=== PATIENT | male | born 1985 | race Caucasian/White ===

== ENCOUNTER 2017-09-01 20:24 | Emergency (ER) | payer SELFPAY | END 2017-09-01 21:30 | disposition home or self-care (01) | LOC: D.ER 20:24 | DX: L02.01 Cutaneous abscess of face (principal); F17.200 Nicotine dependence, unspecified, uncomplicated ==

== ENCOUNTER 2017-09-03 12:49 | Emergency (ER) | payer SELFPAY | END 2017-09-03 17:39 | disposition home or self-care (01) | LOC: D.ER 12:49 | DX: L03.211 Cellulitis of face (principal); F17.200 Nicotine dependence, unspecified, uncomplicated ==

== ENCOUNTER 2018-04-13 05:48 | Emergency (ER) | payer MEDICAID ==
[~2018-04-13] VITALS: Ht 167.6 cm; Wt 68.2 kg
[2018-04-13 05:58] VITALS: Ht 167.6 cm; Wt 68.2 kg
[2018-04-13] MEDS ORDERED: HYDROCODON-ACE1 EAC7 PO (06:13)
[2018-04-13] MEDS ORDERED: AMOXICILLIN500 M1 PO (06:13)
[2018-04-13 06:29] VITALS: BP 129/83
== END 2018-04-13 06:30 | disposition home or self-care (01) ==
LOC: D.ER 05:48
DX: K60.2 Anal fissure, unspecified (principal); K02.9 Dental caries, unspecified; K92.1 Melena; R10.9 Unspecified abdominal pain; I10 Essential (primary) hypertension

== ENCOUNTER 2018-04-23 13:05 | Emergency (ER) | payer MEDICAID ==
[2018-04-13 05:58] VITALS: BMI 24.2
[~2018-04-23 13:05] MED LIST: AMOXICILLIN500 M1 PO; HYDROCODON-ACE1 EAC7 PO
== END 2018-04-23 13:12 | disposition left against medical advice (07) ==
LOC: D.ER 13:05
DX: K60.2 Anal fissure, unspecified (principal); K02.9 Dental caries, unspecified; I10 Essential (primary) hypertension; F17.200 Nicotine dependence, unspecified, uncomplicated

== ENCOUNTER 2018-04-28 11:20 | Emergency (ER) | payer MEDICAID ==
[~2018-04-28] VITALS: Ht 167.6 cm; Wt 70.5 kg
[2018-04-28 11:28] VITALS: Ht 167.6 cm; Wt 70.5 kg
[2018-04-28] MEDS ORDERED: ACETAMINOPHEN325 MG PO (11:33)
[2018-04-28] MEDS ORDERED: CLEOCIN HCL300 MG PO (12:12)
[2018-04-28] MEDS ORDERED: TORADOL10 MG PO (12:12)
[2018-04-28 13:19] VITALS: BP 120/71
== END 2018-04-28 13:19 | disposition home or self-care (01) ==
LOC: D.ER 11:20
DX: K02.9 Dental caries, unspecified (principal); L27.1 Localized skin eruption due to drugs and medicaments taken internally; T36.95XA Adverse effect of unspecified systemic antibiotic, initial encounter; Y92.019 Unspecified place in single-family (private) house as the place of occurrence of the external cause; K05.30 Chronic periodontitis, unspecified; I10 Essential (primary) hypertension; F17.200 Nicotine dependence, unspecified, uncomplicated

== ENCOUNTER 2019-01-05 18:24 | Emergency (ER) | payer MEDICAID ==
[~2019-01-05] VITALS: Ht 167.6 cm; Wt 70.5 kg
[~2019-01-05 18:24] MED LIST changes: +ACETAMINOPHEN325 MG PO; +CLEOCIN HCL300 MG PO; +TORADOL10 MG PO
[2019-01-05 18:39] VITALS: Ht 167.6 cm; Wt 70.5 kg
[2019-01-05] MEDS ORDERED: TORADOL10 MG PO (20:14)
[2019-01-05 20:33] VITALS: BP 131/70
== END 2019-01-05 20:33 | disposition home or self-care (01) ==
LOC: D.ER 18:24
DX: S93.401A Sprain of unspecified ligament of right ankle, initial encounter (principal); X50.1XXA Overexertion from prolonged static or awkward postures, initial encounter; Y93.89 Activity, other specified; Y92.89 Other specified places as the place of occurrence of the external cause; S31.159A Open bite of abdominal wall, unspecified quadrant without penetration into peritoneal cavity, initial encounter; W54.0XXA Bitten by dog, initial encounter

== ENCOUNTER 2019-03-15 17:03 | Day surgery (SDC) | payer OTHER ==
[~2019-03-15] VITALS: Ht 167.6 cm; Wt 65.9 kg
[2019-03-15 19:00] LABS: BASOPHILS 0.4 % (0-2); EOSINOPHILS 2.1 % (0-7); HEMATOCRIT 44.4 % (42.0-54.0); HEMOGLOBIN 15.1 g/dL (13.5-17.5); IMMATURE GRANULOCYTES 0.1 % (0-5); LYMPHOCYTES 24.6 % (15-50); MCH 30.4 pg (26.0-34.0); MCV 89.5 fL (80.0-100.0); MEAN PLATELET VOLUME 11.4 fL (7.4-10.4); MONOCYTES 10.5 % (2-11); NEUTROPHILS 62.3 % (40-80); PLATELET COUNT 246 10x3/uL (130-400); RBC 4.96 10x6/uL (4.20-6.10); RDW 13.3 % (11.5-14.5); WBC 7.5 10x3/uL (4.8-10.8)
[2019-03-15 19:17] LABS: ALBUMIN 3.5 g/dL (3.4-5.0); ALKALINE PHOSPHATASE 80 U/L (46-116); ALT (SGPT) 23 U/L (10-68); BILIRUBIN - TOTAL 0.24 mg/dL (0.2-1.3); CALC OSMOLALITY 277 mosm/kg (275-300); CALCIUM 9.4 mg/dL (8.5-10.1); CARBON DIOXIDE 32.2 mmol/L (21.0-32.0); CHLORIDE - SERUM 104 mmol/L (98-107); CREATININE - SERUM 0.8 mg/dL (0.6-1.3); GLUCOSE 84 mg/dL (74-106); POTASSIUM - SERUM 4.5 mmol/L (3.5-5.1); PROTEIN - SERUM 7.2 g/dL (6.4-8.2); SODIUM 141 mmol/L (136-145); UREA NITROGEN 8 mg/dL (7-18); eGFR NON AFRICAN AMERICAN > 90 mL/min (90-120)
--- NOTE | 2019-03-15 19:35 | NUR ---
RECEIVED PT FROM ER VIA W/C. ALERT AND ORIENTED X4. RESP EVEN AND NONLABORED. ACCOMPANIED BY S.O. REPORTS PAIN IN ARM 10. JUST RECEIVED PAIN MED IN ER. SOFT CAST NOTED TO JODEE. SALINE LOCK NOTED TO LT AC. AMBULATORY. DENIES ANY HOME MEDS. PT IS A SMOKER AND ALSO ADMITS TO DRINKING ALCOHOL. AT FIRST DENIED ANY DRUG USE BUT THEN ADMITTED TO SMOKING MARIJUANA AND METH. REPORTS LAST METH USE ON SATURDAY. STATES HE IS TRYING TO "GET OFF OF IT". ADMITS TO TAKING "PILLS" ALSO BUT DID NOT ELABORATE. INFORMED PT THAT HE IS NPO AFTER MIDNIGHT AND HE VERBALIZED UNDERSTANDING. INFORMED PT THAT URINE SPECIMEN IS NEEDED. SR ELEVATED X2. CL IN REACH.
[2019-03-15 20:00] VITALS: BP 148/97
--- NOTE | 2019-03-15 22:16 | NUR ---
MEDICATED WITH MORPHINE AND ZOFRAN FOR C/O PAIN IN RUE 10. CL IN REACH. NS @ 50 MLHR INFUSING IN LT AC WITHOUT DIFF.
--- NOTE | 2019-03-15 23:30 | NUR ---
CALLED STAFF TO ROOM ASKING IF HE COULD GO OUTSIDE AND GET SOME "FRESH AIR." PT SLURRING WORDS AND DROWSY FROM PAIN MED. ADVISED PT THAT HE SHOULD PROBABLY WAIT UNTIL THE PAIN MED WEARS OFF IN ABOUT AN HOUR OR SO BEFORE HE GOES OUTSIDE DUE TO SAFETY ISSUES AND RISK FOR FALL OR INJURY. PT UPSET AT STAFF. SIG OTHER AT BEDSIDE.
[2019-03-15 23:35] VITALS: BP 148/97; Ht 167.6 cm; Wt 65.9 kg
[2019-03-16] VITALS (9 sets, daily range): BP systolic 144–164; BP diastolic 80–96
--- NOTE | 2019-03-16 00:30 | NUR ---
ASKED STAFF IF HE COULD GO OUTSIDE. ADVISED HIM AGAINST GOING OUTSIDE WHILE UNDER THE INFLUENCE OF PAIN MED BUT THAT WE COULDNT KEEP HIM FROM GOING. PT AND S.O. AGITATED WITH THIS FARM OPERATIONS TECHNICAL DIRECTOR. MANAGER FINE DINING ENTERED ROOM AND S.O. STATES THAT THEY WANT ANOTHER NURSE. NOTIFIED CHARGE NURSE OF THIS. THEY STATED THAT THIS FARM OPERATIONS TECHNICAL DIRECTOR THREW HER HANDS OF IN THE AIR AND "HUFFED AND PUFFED" ABOUT HIM GOING OUTSIDE WHICH NEVER HAPPENED. REPORT GIVEN TO Mary ISRAEL LPN TO CARE FOR THIS PT FOR THE REMAINDER OF THE SHIFT. PT DISCONNECTED FROM IV FLUIDS AND WENT OUTSIDE IN W/C TO SMOKE WITH S.O.
--- NOTE | 2019-03-16 01:17 | NUR ---
ASSUMED CARE OF PATIENT. PT STATED HE HAD URINE SAMPLE READY. WENT INTO ROOM TO COLLECT URINE AND PATIENT STATED "I'VE GOT TO GO BACK OUT SIDE I LOST MY PHONE." PATIENT AND SIGNIFICANT OTHER WERE WALKING OUT AND INSTRUCTED PATIENT THAT HE NEEDED TO BE IN THE WHEELCHAIR WHENEVER HE IS OUT OF HIS ROOM FOR SAFETY ESPECIALLY UNDER THE INFLUENCE OF PAIN MEDICINE. PATIENT STATED "OKAY" AND REMAINED WALKING DOWN [address] WHILE SIGNIFICANT OTHER PUSHED EMPTY WHEEL CHAIR DOWN [address]. PATIENT IGNORES STAFF EDUCATION AND INSTRUCTION. RETURNED BACK TO ROOM WITH SIGNIFICANT OTHER AT SIDE. URINE SPECIMEN COLLECTED AND DELIVERED TO LAB.
[2019-03-16 01:23] LABS: APPEARANCE CLEAR (CLEAR); BILIRUBIN NEGATIVE (NEGATIVE); COLOR YELLOW (YELLOW); GLUCOSE NEGATIVE (NEGATIVE); KETONE NEGATIVE (NEGATIVE); NITRITE NEGATIVE (NEGATIVE); PROTEIN NEGATIVE (NEGATIVE); SPECIFIC GRAVITY 1.015 (1.005-1.020); UROBILINOGEN NORMAL (NORMAL)
[2019-03-16 01:36] LABS: UDS - AMPHET POSITIVE QUAL (NEGATIVE); UDS - BARB NEGATIVE QUAL (NEGATIVE); UDS - BENZO NEGATIVE QUAL (NEGATIVE); UDS - COCAINE NEGATIVE QUAL (NEGATIVE); UDS - OPIATE POSITIVE QUAL (NEGATIVE); UDS - PCP NEGATIVE QUAL (NEGATIVE); UDS - THC NEGATIVE QUAL (NEGATIVE)
--- NOTE | 2019-03-16 02:00 | NUR ---
ANSWERED PT CALL LIGHT. ASKED PATIENT PAIN RATING AND PT REPLIED "NO PAIN RIGHT NOW." DISCUSSED WITH PATIENT ABOUT POLICY OF GOING IN AND OUT AND THAT NO ONE IS TRYING TO HOLD HIM IN AGAINST HIS WILL THAT LEAVING THE FLOOR IS A SAFETY ISSUE ESPECIALLY WHEN IV PAIN MEDICINE IS INVOLVED. PATIENT CALM AND UNDERSTANDING. PT MORE COMPLIANT NOW THAN BEFORE.
--- NOTE | 2019-03-16 05:56 | NUR ---
PT STATES NAUSEA. ADMINISTERED ZOFRAN PER ORDER. STATES HE IS "NERVOUS ABOUT SURGERY. I'VE NEVER HAD SURGERY BEFORE." ENCOURAGED PATIENT TO SPEAK WITH SURGEON OR ANESTHESIOLOGIST ABOUT ANY ISSUES OR CONCERNS. PATIENT VERBALIZES UNDERSTANDING.
--- NOTE | 2019-03-16 10:45 | NUR ---
PATIENT GOT UPSET WITH FAMILY. REFUSED TO HAVE THE SURGERY. FAMILY LEAVES. I GO INTO THE ROOM TO SEE WHAT THE PROBLEM WAS. HIS MOM AND GIRLFRIEND DO NOT GET ALONG. HIS MOM WOULD NOT CALL HIS GIRLFRIEND FOR HIM. HE WANTS HIS GIRLFRIEND UP HERE WHILE HE HAS SURGERY. I CALLED JIMBO SAID THE PATIENT DID NOT WANT THE SURGERY ANY MORE AND THAT HE WANTED TO LEAVE AMA. WHICH HE HAD STATED. JIMBO TOLD ME TO INFORM HIM THAT IF HE DOES NOT GET THIS SURGERY HIS ARM WILL NOT HEAL PROPERLY AND HE WILL NOT BE ABLE TO USE THAT ARM. ALSO THAT IF HE LEFT IT WOULD BE AGAINST MEDICAL ADVICE AND THAT INSURANCE WOULD NOT COVER IT. WE GOT DEE AND PATIENT DECIDED HE WOULD GO AHEAD AND GO TO SURGERY. INFORMED SURGERY
[2019-03-16] MEDS ORDERED: PERCOCET 10-321 EAC1 PO (12:11)
--- NOTE | 2019-03-16 14:54 | OP ---
PATIENT NAME: JESUS ROGER MEDICAL RECORD: [id number] :87 LOCATION:[id number] ADMISSION DATE:03/15/19 SURGEON: DUSTIN ZAMORA MD DATE OF OPERATION: 03/16/2019 PREOPERATIVE DIAGNOSIS: Displaced right radius fracture, midshaft. POSTOPERATIVE DIAGNOSIS: Displaced right radius fracture, midshaft. PROCEDURE: Open reduction and internal fixation of displaced midshaft radius fracture. SURGEON: Dustin Zamora MD CASHIER MANAGER: NAT Arambula INTRAOPERATIVE COMPLICATIONS: None. SUMMARY OF PATHOLOGIC FINDINGS: Essentially none. The patient had a small amount of comminution; however, the fracture keyed in nicely and was very amenable to internal fixation via a dorsal approach. All was done under fluoroscopic guidance. OPERATIVE SUMMARY IN DETAIL: After obtaining the appropriate preoperative orthopedic surgery consent as well as anesthetic consultation, evaluation, and clearance, the patient was brought to the operating room and placed on the operating table in supine position. After adequate general laryngeal mask was administered, tourniquet was placed about the proximal aspect of the right upper extremity. The right upper extremity was then prepped and draped in routine sterile fashion. Preoperative time-out was taken including patient identifiers and appropriate operative site as well as medications and allergies. At this point, the arm was elevated and exsanguinated. Tourniquet was inflated to 250 mmHg. An incision was made on the dorsal aspect and taken down gently through the forearm flexors. The terminal branch of the posterior interosseous nerve was identified and protected. The fracture was identified. The fracture hematoma was removed along with interposed soft tissue. It was then reduced and then held in reduction. A 6-hole fracture plate was then placed in combination of both compression and locking screws, again done under fluoroscopic guidance, resulted in anatomic restorationism of the fracture. Final fluoroscopy was taken and submitted for radiologist review. Wound was irrigated and closed in usual fashion by Too Villaseñor using #2 Vicryl and skin luke. Sterile dressings were applied. The tourniquet was deflated. The patient was awakened and taken to recovery room in stable condition. All final needle and sponge counts were correct. TRANSINT:[id number] Voice Confirmation ID: [id number] DOCUMENT ID: [id number] OPERATIVE REPORT [id number] LOTTIE ROGERY Mari DUSTIN ZAMORA MD at 1454 CC: [id number] DICTATION DATE: 03/16/19 1254 RN ACLS: 03/16/19 1408 ADM IN [place] [id number] [place] [id number]
== END 2019-03-16 14:58 | disposition home or self-care (01) ==
LOC: OBSVTIME → D.OPS 17:03 → D.ER 17:03 → D.MS 19:08 → D.ER 19:08 → OBSVTIME 19:08 → D.MS 19:08 → D.ER 19:26 → D.MS 03-16 14:58 → D.OPS 03-16 14:58 → EDSTATUS 03-16 15:00
PROVIDERS: Emergency Medicine; ATTEND Orthopaedic Surgery
DX: S52.91XA Unspecified fracture of right forearm, initial encounter for closed fracture (principal); W20.8XXA Other cause of strike by thrown, projected or falling object, initial encounter

== ENCOUNTER 2019-05-01 23:03 | Inpatient (IN) | payer OTHER ==
[~2019-05-01] VITALS: Ht 167.6 cm; Wt 65.9 kg
[~2019-05-01 23:03] MED LIST changes: +PERCOCET 10-321 EAC1 PO
[2019-05-01 23:55] LABS: BASOPHILS 0.2 % (0-2); EOSINOPHILS 0.3 % (0-7); HEMATOCRIT 38.5 % (42.0-54.0); HEMOGLOBIN 12.7 g/dL (13.5-17.5); IMMATURE GRANULOCYTES 0.2 % (0-5); LYMPHOCYTES 16.7 % (15-50); MCH 29.7 pg (26.0-34.0); MEAN PLATELET VOLUME 10.8 fL (7.4-10.4); MONOCYTES 12.7 % (2-11); NEUTROPHILS 69.9 % (40-80); PLATELET COUNT 279 10x3/uL (130-400); RBC 4.28 10x6/uL (4.20-6.10); RDW 13.3 % (11.5-14.5); WBC 12.2 10x3/uL (4.8-10.8)
[2019-05-02 00:01] LABS: APPEARANCE CLEAR (CLEAR); BILIRUBIN NEGATIVE (NEGATIVE); COLOR YELLOW (YELLOW); GLUCOSE NEGATIVE (NEGATIVE); KETONE NEGATIVE (NEGATIVE); NITRITE NEGATIVE (NEGATIVE); PROTEIN NEGATIVE (NEGATIVE)
[2019-05-02 00:15] LABS: ALBUMIN 3.1 g/dL (3.4-5.0); ALKALINE PHOSPHATASE 114 U/L (46-116); ALT (SGPT) 19 U/L (10-68); CALC OSMOLALITY 271 mosm/kg (275-300); CALCIUM 8.9 mg/dL (8.5-10.1); CARBON DIOXIDE 29.7 mmol/L (21.0-32.0); CHLORIDE - SERUM 97 mmol/L (98-107); CREATININE - SERUM 0.7 mg/dL (0.6-1.3); GLUCOSE 110 mg/dL (74-106); POTASSIUM - SERUM 3.9 mmol/L (3.5-5.1); PROTEIN - SERUM 7.3 g/dL (6.4-8.2); SODIUM 136 mmol/L (136-145); UREA NITROGEN 10 mg/dL (7-18); eGFR NON AFRICAN AMERICAN > 90 mL/min (90-120)
--- NOTE | 2019-05-02 02:43 | NUR ---
ARRIVED ON FLOOR VIA WC WITH SPOUSE AT SIDE. ORIENTED TO ROOM AND CALL LIGHT. ASSESSMENT AND HISTORY PER FLOWSHEET. SANDWICH AND DRINK PROVIDED.
--- NOTE | 2019-05-02 03:00 | NUR ---
IV IN LEFT AC ALARMING AND UNCOMFORTABLE. DC'D WITH TIP INTACT. RESITED TO LEFT FA. 20 GAUGE X1 STICK WITH GOOD BLOOD RETURN NOTED.
[2019-05-02 03:09] VITALS: BP 131/75; Ht 167.6 cm; Wt 65.9 kg
--- NOTE | 2019-05-02 07:00 | NUR ---
ALERT AND ORIENTED, RESTING IN BED. NO C/O PAIN. NO S/S OF ACUTE DISTRESS NOTED. IV TO LEFT FOREARM, NS INFUSING @ 100ML/HR. SITE PATENT WITHOUT REDNESS OR SWELLING. RIGHT FOREARM SWELLING. PT DENIES ANY NEEDS AT THIS TIME. CALL LIGHT IN REACH. WILL CONTINUE TO MONITOR.
--- NOTE | 2019-05-02 07:07 | NUR ---
SPOKE WITH MILEY ALEXANDRE APN ABOUT PT HAVING SOME CHEST DISCOMFORT AND FORD WHEN GETTING MORPHINE IV. DR BENITEZ TO ADDRESS ON [place].
[2019-05-02 09:47] VITALS: BP 102/54
[2019-05-02 10:05] LABS: BASOPHILS 0.1 % (0-2); EOSINOPHILS 0.6 % (0-7); HEMATOCRIT 38.5 % (42.0-54.0); HEMOGLOBIN 12.7 g/dL (13.5-17.5); IMMATURE GRANULOCYTES 0.2 % (0-5); LYMPHOCYTES 15.1 % (15-50); MCH 30.4 pg (26.0-34.0); MEAN PLATELET VOLUME 12.1 fL (7.4-10.4); MONOCYTES 14.7 % (2-11); NEUTROPHILS 69.3 % (40-80); PLATELET COUNT 301 10x3/uL (130-400); RBC 4.18 10x6/uL (4.20-6.10); RDW 13.8 % (11.5-14.5); WBC 12.5 10x3/uL (4.8-10.8)
--- NOTE | 2019-05-02 10:05 | NUR ---
PT LEFT TO GO OUTSIDE FOR FRESH AIR. RECEIVED A PHONE CALL FROM THE PATIENT'S SIGNIFICANT OTHER THAT THEY HAD LEFT TO GO TO [facility] AND HAD CAR TROUBLE. THIS NURSE EXPLAINED TO PT THAT PT WAS NOT ALLOWED TO LEAVE THE PROPERTY BECAUSE PT IS ADMITTED TO MED-SURG. PT APOLOGIZED AND STATED THEY WERE ON THE WAY BACK. CALLED COST CONTROLLER, TALKED TO RAVINDER. EXPLAINED TO HER WHAT HAPPENED. NOTIFIED YASMANY MORSE APN WELL. CONSIDERING PT ELLOPEMENT.
[2019-05-02 10:06] LABS: MCV 92.1 fL (80.0-100.0)
--- NOTE | 2019-05-02 12:00 | NUR ---
CALLED PT TO CHECK ON STATUS IF PT WAS RETURNING TO UNIT OR NOT. PT STATED HE WAS GOING TO BE COMING BACK TO THE UNIT SOON. THIS NURSE EXPLAINED TO THE PT THAT PT WOULD HAVE TO BE READMITTED INTO THE ER. PT STILL HAS IV ACCESS, WAITING FOR PT TO RETURN IN ORDER TO DISCONTINUE IV. EXPLAINED TO PT AND SPOUSE THAT IF PT DID NOT RETURN THIS NURSE WILL HAVE TO REPORT INCIDENT TO POLICE. NOTIFIED RAVINDER, PAYROLL SECRETARY OF SITUATION.
== END 2019-05-02 10:13 | disposition left against medical advice (07) | DRG 603 ==
LOC: D.ER 23:03 → D.MS 05-02 01:58
PROVIDERS: Family Medicine; ADMIT Internal Medicine Nephrology; ATTEND Internal Medicine Nephrology
DX: L03.114 Cellulitis of left upper limb (principal)

== ENCOUNTER 2019-06-03 18:34 | Emergency (ER) | payer OTHER ==
[~2019-06-03] VITALS: Ht 167.6 cm; Wt 65.9 kg
[2019-06-03 18:39] VITALS: Ht 167.6 cm; Wt 65.9 kg
[2019-06-03] MEDS ORDERED: [UNRECOGNIZED DRUG - REMARK] (18:41)
[2019-06-03] MEDS ORDERED: HYDROCODON-ACE1 EA10 PO (21:00)
[2019-06-03 21:15] VITALS: BP 138/88
== END 2019-06-03 21:16 | disposition home or self-care (01) ==
LOC: D.ER 18:34
DX: S52.202A Unspecified fracture of shaft of left ulna, initial encounter for closed fracture (principal); X58.XXXA Exposure to other specified factors, initial encounter

== ENCOUNTER 2019-06-08 23:41 | Emergency (ER) | payer OTHER ==
[~2019-06-08] VITALS: Ht 167.6 cm; Wt 65.9 kg
[~2019-06-08 23:41] MED LIST changes: +HYDROCODON-ACE1 EA10 PO; +[UNRECOGNIZED DRUG - REMARK]
[2019-06-09 00:09] VITALS: Ht 167.6 cm; Wt 65.9 kg
[2019-06-09] MEDS ORDERED: ZYVOX600 MG PO (00:10)
[2019-06-09 01:22] LABS: BASOPHILS 0.2 % (0-2); EOSINOPHILS 2.4 % (0-7); HEMATOCRIT 38.5 % (42.0-54.0); HEMOGLOBIN 12.6 g/dL (13.5-17.5); IMMATURE GRANULOCYTES 0.2 % (0-5); LYMPHOCYTES 28.1 % (15-50); MCH 29.4 pg (26.0-34.0); MCHC 32.7 g/dL (31.0-37.0); MCV 89.7 fL (80.0-100.0); MEAN PLATELET VOLUME 9.4 fL (7.4-10.4); MONOCYTES 12.6 % (2-11); NEUTROPHILS 56.5 % (40-80); PLATELET COUNT 289 10x3/uL (130-400); RBC 4.29 10x6/uL (4.20-6.10); RDW 14.3 % (11.5-14.5); WBC 8.8 10x3/uL (4.8-10.8)
[2019-06-09 01:31] LABS: CALC OSMOLALITY 269 mosm/kg (275-300); CALCIUM 8.6 mg/dL (8.5-10.1); CARBON DIOXIDE 27.1 mmol/L (21.0-32.0); CHLORIDE - SERUM 102 mmol/L (98-107); CREATININE - SERUM 0.8 mg/dL (0.6-1.3); GLUCOSE 111 mg/dL (74-106); POTASSIUM - SERUM 3.5 mmol/L (3.5-5.1); SODIUM 135 mmol/L (136-145); UREA NITROGEN 11 mg/dL (7-18); eGFR NON AFRICAN AMERICAN > 90 mL/min (90-120)
[2019-06-09 01:37] LABS: ALBUMIN 3.3 g/dL (3.4-5.0); ALKALINE PHOSPHATASE 110 U/L (46-116); ALT (SGPT) 27 U/L (10-68); BILIRUBIN - TOTAL 0.43 mg/dL (0.2-1.3)
[2019-06-09 02:12] LABS: INR 1.05 (0.85-1.17); PROTIME 13.2 SECONDS (11.6-15.0)
[2019-06-09 02:49] VITALS: BP 127/83
== END 2019-06-09 02:50 | disposition other institution (70) ==
LOC: D.ER 23:41
PROVIDERS: Family Medicine
DX: T84.89XA Other specified complication of internal orthopedic prosthetic devices, implants and grafts, initial encounter (principal)